=== PATIENT | male | born 1990 | race Two or more races ===

== ENCOUNTER 2018-07-01 13:15 | Emergency (ER) | payer BC ==
[2018-07-01] MEDS ORDERED: Lidocaine/Epinephrine 1% 1:100000 10 ML IJ ONE (13:27)
--- NOTE | 2018-07-01 13:28 | C.PDOC ---
History Of Present Illness 27yo male, comes to ER reporting a "boil" on his left buttock x 1 week. Patient states it has been increasing in redness and size and is painful. He denies any discharge from the area. Otherwise, no fever or chills. Patient has no additional medical complaints. Time Seen by Provider: 07/01/18 13:21 Chief Complaint (Nursing): Abnormal Skin Integrity History Per: Patient History/Exam Limitations: no limitations Onset/Duration Of Symptoms: Days Current Symptoms Are (Timing): Still Present Location Of Injury: Left: Buttock Quality Of Symptoms: Painful. denies: Draining Additional History Per: Patient Past Medical History Reviewed: Historical Data, Nursing Documentation, Vital Signs Vital Signs: Last Vital Signs Temp 98.7 F 07/01/18 13:17 Pulse 100 H 07/01/18 13:17 Resp 18 07/01/18 13:17 BP 133/80 07/01/18 13:17 Pulse Ox 100 07/01/18 14:12 - Medical History PMH: No Chronic Diseases Surgical History: No Surg Hx Family History: States: No Known Family Hx - Social History Hx Alcohol Use: Yes Hx Substance Use: Yes Review Of Systems Constitutional: Negative for: Fever, Chills Skin: Positive for: Other (abscess to left buttock) Physical Exam - Physical Exam Appears: Non-toxic, No Acute Distress Skin: Warm, Other (abscess to left buttock with moderate local erythema. no streaking noted. no drainage.) Eye(s): bilateral: Normal Inspection Neck: Supple Chest: Symmetrical Neurological/Psych: Oriented x3 ED Course And Treatment O2 Sat by Pulse Oximetry: 100 (RA) Pulse Ox Interpretation: Normal Progress Note: Pateint given Naproxen, Zofran and Percocet. Patient given first dose of Celfex in ER. See procedure note for I&D. - Incision & Drainage Of Abscess Anesthesia: Lidocaine 1%, With Epi Used During Procedure: Continuous Pulse Oximetry Prep Used: Betadine Procedure: Incised W/Scalpel Blade#: (11), Drained Pus, Irrigated Cavity W/ Saline, Packed W/Gauze Disposition Counseled Patient/Family Regarding: Diagnosis, Need For Followup, Rx Given - Disposition Referrals: [facility] [Provider Group] Disposition: HOME/ ROUTINE Disposition Time: 14:11 Condition: IMPROVED Additional Instructions: return 2 days for PACKING EVALUATION. TAKE MEDICINE PRESCRIBED. Prescriptions: Cephalexin [cephalexin] 500 mg PO BID #14 cap Ibuprofen [Motrin] 600 mg PO Q6 #30 tab Tramadol HCl [Ultram] 50 mg PO QID #20 tab Instructions: Boil (DC) Forms: [facility] (Montenegrin), Work Excuse - Clinical Impression Clinical Impression: Abscess, Cellulitis - Scribe Statement The provider has reviewed the documentation as recorded by the Cecilia Bernstein Provider Attestation: All medical record entries made by the Cecilia were at my direction and personally dictated by me. I have reviewed the chart and agree that the record accurately reflects my personal performance of the history, physical exam, medical decision making, and the department course for this patient. I have also personally directed, reviewed, and agree with the discharge instructions and disposition.
[2018-07-01 13:35] VITALS: BP 133/80; PULSE 100; RESP 18; TEMP 98.7; O2SAT 100
[2018-07-01] MEDS ORDERED: Naproxen 550 mg Tab PO ONE ×2 (13:41→13:45)
[2018-07-01] MEDS ORDERED: Oxycodone/Acetaminophen 5/325 mg Tab ONE (13:41)
[2018-07-01] MEDS ORDERED: Oxycodone/Acetaminophen 5/325 mg Tab PO ONE (13:45)
== END 2018-07-01 14:21 | disposition home or self-care (01) ==
LOC: C.ER 13:15
DX: L02.31 Cutaneous abscess of buttock (principal); L03.317 Cellulitis of buttock